=== PATIENT | male | born 1995 ===

== ENCOUNTER 2019-09-17 22:21 | Emergency (ER) | payer OTHER ==
--- NOTE | 2019-09-17 23:16 | EDM.PDOC ---
ED HPI GENERAL MEDICAL PROBLEM - General Chief Complaint: Fever Stated Complaint: HIGH FEVER Time Seen by Provider: 09/17/19 22:45 Source of Information: Reports: Patient - History of Present Illness INITIAL COMMENTS - FREE TEXT/NARRATIVE: The patient is a 24-year-old male who presents to the ER, nasal congestion and a high fever of 103 degrees. He also has a mild headache. No chest pain, no shortness of breath, no vomiting or diarrhea. His appetite is decreased. No myalgias. He took some ibuprofen earlier but he still has a fever. Last dose was at noon. Generalized Pain Score (Numeric/FACES): 6 - Related Data Allergies Allergy/AdvReac Type Severity Reaction Status Date / Time No Known Allergies Allergy Verified 09/17/19 22:54 Home Meds: Home Meds . [No Known Home Meds] 12/21/14 [History] Past Medical History - Past Health History Medical/Surgical History: Denies Medical/Surgical History Psychiatric History: Reports: None - Infectious Disease History Infectious Disease History: Reports: None Social & Family History - Tobacco Use Smoking Status *Q: Never Smoker - Recreational Drug Use Recreational Drug Use: No ED ROS GENERAL - Review of Systems Review Of Systems: See Below Free Text/Narrative/Comment: Positive for fever, positive for malaise, positive for intermittent nausea but no vomiting, negative for diarrhea, positive for dry cough, positive for nasal congestion, positive for headache, all other Positives and pertinent negatives as per HPI. All other pertinent systems were reviewed and are negative ED EXAM, GENERAL - Physical Exam Exam: See Below Free Text/Narrative:: Constitutional: Febrile, looks like he does not feel well, no acute distress, Non-toxic appearance, sounds nasally congested HEENT.: Normocephalic, PERRL, EOMI, External ears are atraumatic, Oropharynx clear and moist without lesions or masses, nares are congested without epistaxis Neck: Normal range of motion, Trachea Midline, No stridor Respiratory.: No respiratory distress, No tachypnea, Lungs Clear to Auscultation bilaterally without wheezes, rales, or rhonchi Cardiovascular.: Regular rate and Rhythm without murmurs, rubs, or gallops, good peripheral perfusion GI: Abdomen soft and non tender, no masses, no rebound, rigidity, or guarding Genital Urinary: Deferred Musculoskeletal: Good range of motion. All 4 extremities present and atraumatic , no edema Back: Full Range of Motion Skin: Warm, Dry, Color is ethnicity appropriate, No acute rash. Lymphatic: No lymphadenopathy noted Neurological: Alert, Awake and oriented x 3, No focal deficits noted appreciate , GCS 15 Psych: Affect, Judgement, mood normal Course - Vital Signs Text/Narrative:: History and exam are consistent with a viral benign process. Education was provided and the patient was given a couple of days off work. No prescriptions were given. Last Recorded V/S: Last Vital Signs Temp 38.0 C 09/17/19 23:20 Pulse 116 H 09/17/19 23:20 Resp 18 09/17/19 23:20 BP 106/64 09/17/19 23:20 Pulse Ox 97 09/17/19 23:20 - Orders/Labs/Meds Orders: Active Orders 24 hr Category Date Time Status CULTURE STREP A CONFIRMATION [] Stat Lab 09/17/19 22:35 Results STREP SCRN A RAPID W CULT CONF [] Stat Lab 09/17/19 22:35 Results Departure - Departure Time of Disposition: 23:15 Disposition: Home, Self-Care 01 Condition: Good Clinical Impression: Viral syndrome - Discharge Information Instructions: Viral Illness, Adult Referrals: PCP,None [Primary Care Provider] - Forms: ED Department Discharge Additional Instructions: VIRAL SYNDROME This appears to be a viral syndrome. They are highly common and variable, causing fevers, colds, coughs, headaches, vomiting, diarrhea, etc. Antibiotics don't work on viruses, and they need to run their course. On average these last 7-10 days, depending upon the virus. There are some that even last up to several weeks. Rest, drink plenty of clear fluids, especially water. You want our urine to be clear to a light yellow. Ibuprofen 800 mg and Tylenol 1000 mg may be taken at the same time every 6 hours as needed for fevers and discomfort. Upper respiratory congestion and sore throats can be improved with cool liquids , humidifiers, cough drops with menthol, honey, tea with honey, and over-the- counter decongestants. Return to the ER if you develop difficulty breathing, or any other concerns. The following information is given to patients seen in the emergency department who are being discharged to home. This information is to outline your options for follow-up care. We provide all patients seen in our emergency department with a follow-up referral. The need for follow-up, as well as the timing and circumstances, are variable depending upon the specifics of your emergency department visit. If you don't have a primary care physician on staff, we will provide you with a referral. We always advise you to contact your personal physician following an emergency department visit to inform them of the circumstance of the visit and for follow-up with them and/or the need for any referrals to a consulting specialist. The emergency department will also refer you to a specialist when appropriate. This referral assures that you have the opportunity for follow-up care with a specialist. All of these measure are taken in an effort to provide you with optimal care, which includes your follow-up. Under all circumstances we always encourage you to contact your private physician who remains a resource for coordinating your care. When calling for follow-up care, please make the office aware that this follow-up is from your recent emergency room visit. If for any reason you are refused follow-up, please contact the [facility] Emergency Department at and asked to speak to the emergency department charge nurse. Sepsis Event Note - Evaluation Sepsis Screening Result: Possible Sepsis Risk - Focused Exam Vital Signs: Vital Signs Temp Pulse Resp BP Pulse Ox 09/17/19 23:20 38.0 C 116 H 18 106/64 97 09/17/19 22:51 38.5 C H 123 H 22 H 134/93 H 96 Date Exam was Performed: 09/18/19 Time Exam was Performed: 02:56 - My Orders Last 24 Hours: My Active Orders 09/17/19 22:35 CULTURE STREP A CONFIRMATION [RM] Stat STREP SCRN A RAPID W CULT CONF [] Stat - Assessment/Plan Last 24 Hours: My Active Orders 09/17/19 22:35 CULTURE STREP A CONFIRMATION [RM] Stat STREP SCRN A RAPID W CULT CONF [] Stat
[2019-09-18 00:15] VITALS: BP 106/64; PULSE 116
== END 2019-09-17 23:20 | disposition home or self-care (01) ==
LOC: MW.ED 22:21
DX: B34.9 Viral infection, unspecified (principal)
CPT/HCPCS: 87081; 87804; 87880-QW; 99282; 99284